=== PATIENT | female | born 1960 | race Caucasian/White ===

== ENCOUNTER 2021-05-13 15:35 | Emergency (ER) | payer OTHER ==
[2021-05-13] MEDS ORDERED: BENZONATATE200 MG PO (17:29)
[2021-05-13] MEDS ORDERED: PREDNISONE 20 M20 MG PO (17:29)
[2021-05-13] MEDS ORDERED: PROAIR HFA8.5 GM INH (17:30)
== END 2021-05-13 17:44 | disposition home or self-care (01) ==
LOC: ER1 15:35
DX: R06.02 Shortness of breath (principal); I10 Essential (primary) hypertension; Z88.5 Allergy status to narcotic agent
CPT/HCPCS: 71046; 99284